=== PATIENT | female | born 1955 | race Caucasian/White ===

== ENCOUNTER 2018-05-23 06:15 | Emergency (ER) | payer SELFPAY ==
[~2018-05-23] VITALS: Ht 160 cm; Wt 39.9 kg
--- NOTE | 2018-05-23 06:15 | NUR ---
MARCELO ESCOBAR. TAKEN TO BED 1
--- NOTE | 2018-05-23 06:15 | NUR ---
PT BIBA C/O LOWER ABD PAIN X2 HOURS, +NAUSEA. PT WAS PICKED UP IN FRONT OF A [employer] SHOP. LAST USED METH AROUND NOON. DENIES V/D; SKIN IS PINK/WARM/DRY; AAOX4 WITH EVEN AND STEADY GAIT; LUNGS CLEAR BL; HR EVEN AND REGULAR; PT DENIES ANY FEVER, CP, SOB, OR COUGH AT THIS TIME; PATIENT STATES PAIN OF 0/10 AT THIS TIME; VSS; PATIENT POSITIONED FOR COMFORT; HOB ELEVATED; BEDRAILS UP X2; BED DOWN. ER MD MADE AWARE OF PT STATUS. PMH: DENIES
[2018-05-23 06:20] VITALS: BP 155/89
--- NOTE | 2018-05-23 06:22 | NUR ---
Dr. Mendes evaluating patient at bedside.
[2018-05-23] MEDS ORDERED: NACL 0.9% 1,000 ML IV ONE (06:25)
[2018-05-23] MEDS ORDERED: MORPHINE SULFATE 4 MG/ML SYR IVP ONE ×2 (06:25→07:50)
--- NOTE | 2018-05-23 06:30 | NUR ---
PT IS REFUSING IV TREATMENT OR LAB DRAW AT THIS TIME. ROSEY PORRAS MADE AWARE.
--- NOTE | 2018-05-23 06:55 | NUR ---
PT TO CT VIA [facility] BY [facility].
--- NOTE | 2018-05-23 07:07 | NUR ---
PT RETURN FROM CT
[2018-05-23 07:18] LABS: ALBUMIN 3.7 g/dL (3.4-5.0); ANION GAP 5.9 (8-16); CARBON DIOXIDE 31.3 mmol/L (21-32); CREATININE 0.9 mg/dL (0.6-1.3); POTASSIUM 4.2 mmol/L (3.5-5.1); TOTAL BILIRUBIN 1.1 mg/dL (0.0-1.0)
--- NOTE | 2018-05-23 07:21 | NUR ---
Pt report given to Saud. Transfer of care at this time.
--- NOTE | 2018-05-23 07:22 | NUR ---
RECEIVED REPORT FROM NADEEN NUNEZ.
--- NOTE | 2018-05-23 07:46 | NUR ---
C/O LEFT LOWER ABD PAIN 8/10 AT THIS TIME. ABD :SOFT. NOTIFIED DR GASPAR.
--- NOTE | 2018-05-23 07:47 | NUR ---
Patient being evaluated by DR GASPAR at bedside. Addendum: 05/23/18 at 0819 by [facility] AT BEDSIDE.
--- NOTE | 2018-05-23 08:24 | NUR ---
PT C/O LEFT LOWER ABD PAIN 10/24. DENIES N/V/D. BP 193/95. PULSE OX 100% ,P 78, RR18. NOTIFIED DR GASPAR.
--- NOTE | 2018-05-23 08:26 | NUR ---
DENIES HEADACHE AT THIS TIME.
[2018-05-23 08:38] VITALS: BP 162/89
--- NOTE | 2018-05-23 08:38 | NUR ---
Note undone in EDM - 05/23/18 at 0846 by [facility] Patient discharged with BP 162/89; DENIES SHAHID OR DIZINESS AT THIS TIME. MD MADE AWARE.. Written and verbal after care instructions given and explained. Patient alert, oriented and verbalized understanding of instructions. Ambulatory with steady gait. All questions addressed prior to discharge. ID band removed. Patient advised to follow up with PMD. Rx of NORCO, MOTRIN & ZOFRAN given. Patient educated on indication of medication including possible reaction and side effects. Opportunity to ask questions provided and answered.
--- NOTE | 2018-05-23 08:38 | NUR ---
Note osmanione in EDM - 05/23/18 at 0845 by [facility] Patient discharged with v/s stable. Written and verbal after care instructions given and explained. Patient alert, oriented and verbalized understanding of instructions. Ambulatory with steady gait. All questions addressed prior to discharge. ID band removed. Patient advised to follow up with PMD. Rx of NORCO, MOTRIN & ZOFRAN given. Patient educated on indication of medication including possible reaction and side effects. Opportunity to ask questions provided and answered.
--- NOTE | 2018-05-23 08:38 | NUR ---
PT STATED SHE LIVES WITH HER FRIEND AT HIS HOME.
== END 2018-05-23 08:38 | disposition home or self-care (01) ==
LOC: MED 06:15
DX: R10.32 Left lower quadrant pain (principal); F15.90 Other stimulant use, unspecified, uncomplicated
CPT/HCPCS: 36415; 74176; 80053; 81002; 81025; 83690; 96374; 96376; 99284; J2270; J7030